=== PATIENT | female | born 1960 | race African-American/Black ===

== ENCOUNTER 2017-02-09 12:10 | Emergency (ER) | payer MEDICAID ==
[~2017-02-09 12:10] MED LIST: ABILIFY2 M1 PO; ABILIFY20 M1 PO; ADVAIR 100-501 EACH INH; ALBUTEROL17 GM; ALBUTEROL2.5 MG/3 M INH; AMLODIPINE-BEN1 EA11 PO; ANUSOL RC; ASPIR 8181 M1 PO; ATENOLOL100 M1 PO; ATENOLOL50 MG; ATORVASTATIN CA40 M1 PO; ATORVASTATIN CA80 M1 PO; AVANDIA8 MG; BACTRIM DS TAB1 EAC2 PO; BEANO1 TAB PO; BENZONATATE100 MG; CHLORTHALIDONE25 M1 PO; CIPRO500 M2 PO; CLARITIN10 M6 PO; CLEOCIN HCL300 M1 PO; COMPAZINE10 M PO; CYMBALTA30 MG PO; CYMBALTA60 MG PO; DISCONTINUE:; DULOXETINE HCL60 M1 PO; DUONEB 2.5-0.5MG3 M1 NEB; ENALAPRIL MALEA10 MG; EX-LAX5 MG PO; FEOSOL325 M1 PO; FISH OIL 1,0001 CA1 PO; FISH OIL 11000 MG/CA PO; FLEXERIL10 MG PO; GLIPIZIDE10 M2 PO; GLIPIZIDE10 MG PO; GLIPIZIDE5 M2 PO; GLIPIZIDE5 MG PO; GLUCOPHAGE1000 M1 PO; GLUCOPHAGE1000 MG PO; GLUCOPHAGE500 MG; GLUCOTROL10 MG; GUIATUSS AC SY120 ML PO; HOLD THE FOLLOWING:; HYDROCHLOROTH12.5 M3 PO; IPRAT-ALBUT 0.5-3 ML INH; K-TAB ER20 ME1 PO; LATUDA40 MG PO; LEVAQUIN750 MG PO; LOTREL 10-20 M1 EACH PO; LYRICA100 MG/CAP PO; LYRICA75 MG PO; METFORMIN HCL1000 MG PO; NEURONTIN300 M1 PO; NITROFURANTOIN100 MG PO; NORCO 5-325 TA1 EACH PO; NORCO 5/325 TAB1 TAB PO; NORVASC10 M2 PO; NORVASC5 MG PO; OMEPRAZOLE20 M2 PO; PENTOXIFYLLINE400 M2 PO; PLAVIX75 M1 PO; PROCTOFOAM15 GM RC; PROVENTIL HFA6.7 G1 INH; SPIRIVA18 MC1 INH; TENORMIN100 M1 PO; TENORMIN100 MG PO; VASOTEC20 M2 PO; VASOTEC20 MG PO; VENTOLIN HFA18 GM IH; ZANTAC 7575 MG PO; ZITHROMAX500 MG; ZOFRAN ODT4 MG PO; ZOFRAN ODT4 MG SL; ZOFRAN ODT4 MG/UDTAB PO; ZOFRAN4 M2 PO; [UNRECOGNIZED DRUG - OTHER]; [UNRECOGNIZED DRUG - OTHER] PO; [UNRECOGNIZED DRUG - REMARK]; [UNRECOGNIZED DRUG - REMARK]
[2017-02-09] MEDS ORDERED: CYMBALTA60 M1 PO (13:24)
[2017-02-09] MEDS ORDERED: ABILIFY15 M1 PO (13:25)
[2017-02-09] MEDS ORDERED: NORCO 5-325 TA1 EACH PO (14:06)
== END 2017-02-09 14:12 ==
LOC: EDMED 12:10
DX: M71.21 Synovial cyst of popliteal space [Baker], right knee (principal)